=== PATIENT | male | born 1995 | race Asian ===

== ENCOUNTER 2022-07-06 23:15 | Emergency (ER) | payer BC, MEDICAID ==
[~2022-07-06] VITALS: Ht 170.2 cm; Wt 54.6 kg
[2022-07-07] MEDS ORDERED: KETOROLAC TROMETHAMINE 30 MG/ML VIAL IM ONE (01:00)
[2022-07-07] MEDS ORDERED: KETOROLAC TROMETHAMINE 15 MG/ML VIAL IM ONE (01:15)
[2022-07-07 01:32] VITALS: BP 140/94
== END 2022-07-07 01:47 | disposition home or self-care (01) ==
LOC: EMS 23:16
DX: K08.89 Other specified disorders of teeth and supporting structures (principal); Z98.890 Other specified postprocedural states
CPT/HCPCS: 99283; 96372; J1885

== ENCOUNTER 2023-08-16 21:33 | Emergency (ER) | payer MEDICAID ==
[~2023-08-16] VITALS: Ht 170.2 cm; Wt 55.0 kg
[2023-08-16 21:41] VITALS: TEMP 97.8
[2023-08-16] MEDS: DiphenhydrAMINE HCL 25 MG CAPSULE PO ONE (23:08)
[2023-08-16] MEDS: PredniSONE 20 MG TABLET PO ONE (23:08)
[2023-08-17] MEDS ORDERED: DIPH-1243 PO (00:41)
[2023-08-17] MEDS ORDERED: PRED-554 PO (00:41)
[2023-08-17] MEDS ORDERED: EPIN0.3P3 IM (00:41)
[2023-08-17 00:59] VITALS: BP 136/93; PULSE 68; RESP 16
== END 2023-08-17 01:01 | disposition home or self-care (01) ==
LOC: EMS 21:35
DX: T78.40XA Allergy, unspecified, initial encounter (principal); E78.00 Pure hypercholesterolemia, unspecified; Z98.890 Other specified postprocedural states; Z91.013 Allergy to seafood; X58.XXXA Exposure to other specified factors, initial encounter
CPT/HCPCS: 99283; J7512